=== PATIENT | male | born 1985 | race African-American/Black ===

== ENCOUNTER 2023-10-18 12:59 | Emergency (ER) | payer OTHER ==
[~2023-10-18] VITALS: Ht 177.8 cm; Wt 87.0 kg
[2023-10-18 13:09] VITALS: O2SAT 99
[2023-10-18 13:30] VITALS: BP 117/66; PULSE 79; RESP 14; TEMP 98.1
[2023-10-18] MEDS ORDERED: OXYM30SP26 BOTHNSTRLS (13:41)
[2023-10-18] MEDS ORDERED: OFLO5DRO4 RIGHT EAR (13:41)
== END 2023-10-18 14:15 | disposition home or self-care (01) ==
LOC: ER 13:17
DX: H60.91 Unspecified otitis externa, right ear (principal)
CPT/HCPCS: 99283